=== PATIENT | male | born 1970 | race Two or more races ===

== ENCOUNTER → 2019-03-09 11:33 | Emergency (ER) | payer OTHER ==
[~2019-03-09 11:33] MED LIST: Ketorolac INJ* 30 MG/ML 1 ML VIAL IM ONE
--- NOTE | 2019-03-09 13:15 | ED ---
Throat Pain/Nasal Congestion - HPI Summary HPI Summary: A 49 y/o male presents to [facility] with a chief complaint of throat pain since 07/16. The patient reports that he saw his PCP, tested negative for Strep, and was given Z-pack. Instead of getting better, he reports that his pain is getting worse, with a cough, runny nose, and swelling underneath his neck. At triage he rated his pain as an 8/10 in severity. - History of Current Complaint Chief Complaint: EDThroatPain Time Seen by Provider: 03/09/19 12:53 Hx Obtained From: Patient Onset/Duration: Sudden Onset, Lasting Days, Still Present Severity: Severe Associated Signs And Symptoms: Positive: Nasal Discharge Cough: Other: - Pt reports cough - Allergies/Home Medications Allergies/Adverse Reactions: Allergies Allergy/AdvReac Type Severity Reaction Status Date / Time No Known Allergies Allergy Verified 03/09/19 11:36 PMH/Surg Hx/FS Hx/Imm Hx Cardiovascular History: Reports: Hx Hypertension Denies: Hx Pacemaker/ICD Respiratory History: Denies: Hx Asthma Sensory History: Denies: Hx Hearing Aid Psychiatric History: Denies: Hx Panic Disorder - Immunization History Date of Tetanus Vaccine: utd Date of Influenza Vaccine: utd Infectious Disease History: No Infectious Disease History: Denies: Traveled Outside the [place] in Last 30 Days - Family History Known Family History: Negative: Hypertension - Social History Alcohol Use: None Substance Use Type: Reports: None Hx Tobacco Use: No Smoking Status (MU): Never Smoked Tobacco Review of Systems Negative: Fever Positive: Nasal Discharge, Other - positive: swelling underneath neck Positive: Cough All Other Systems Reviewed And Are Negative: Yes Physical Exam - Summary Physical Exam Summary: Constitutional: Well-developed, Well-nourished, Alert. (-) Distressed Skin: Warm, Dry HENT: Normocephalic; Atraumatic, Left anterior cervical lymphadenopathy Eyes: Conjunctiva normal Neck: Musculoskeletal ROM Left anterior cervical lymphadenopathy. (-) JVD, (-) Stridor, (-) Tracheal deviation Cardio: Rhythm regular, rate normal, Heart sounds normal; Intact distal pulses; The pedal pulses are 2+ and symmetric. Radial pulses are 2+ and symmetric. (-) Murmur Pulmonary/Chest wall: Effort normal. (-) Respiratory distress, (-) Wheezes, (-) Rales Abd: Soft, (-) tenderness, (-) Distension, (-) Guarding, (-) Rebound Musculoskeletal: (-) Edema Lymph: (-) Cervical adenopathy Neuro: Alert, Oriented x3 Psych: Mood and affect Normal Triage Information Reviewed: Yes Vital Signs On Initial Exam: Initial Vitals Temp Pulse Resp BP Pulse Ox 98.1 F 76 15 144/96 97 03/09/19 11:37 03/09/19 11:37 03/09/19 11:37 03/09/19 11:37 03/09/19 11:37 Vital Signs Reviewed: Yes Diagnostics - Vital Signs Vital Signs Temp Pulse Resp BP Pulse Ox 03/09/19 11:37 98.1 F 76 15 144/96 97 - Laboratory Lab Statement: Any lab studies that have been ordered have been reviewed, and results considered in the medical decision making process. Re-Evaluation - Re-Evaluation First Eval Re-Evaluation Time: 13:15 Change: Unchanged Comment: Swelling erythema and exudate over tonsils bilaterally Second Eval Re-Evaluation Time: 15:22 Change: Unchanged Comment: Discussed results and plan for DC and follow up with ENT. EENT Course/Dx - Course Course Of Treatment: A 49 y/o male presents to [facility] with a chief complaint of throat pain since 03/05/19. The patient reports that he saw his PCP, tested negative for Strep, and was given Z-pack. Instead of getting better, he reports that his pain is getting worse, with a cough, runny nose, and swelling underneath his neck. The physical exam revealed left anterior cervical lymphadenopathy. Re-eval showed swelling, erythema and exudate over tonsils bilaterally. The patient tested negative on monoscreen, influenza A, influenza B and group A strep. In the ED course the patient was given Toradol IM. The patient will be discharged and follow up with ENT. The patient is agreeable with this plan. - Diagnoses Provider Diagnoses: Pharyngitis, Viral illness Discharge - Sign-Out/Discharge Documenting (check all that apply): Patient Departure - DC Patient Received Moderate/Deep Sedation with Procedure: No - Discharge Plan Condition: Good Disposition: HOME Patient Education Materials: Pharyngitis (ED), Viral Syndrome (ED) Print Language: GREENLANDIC Referrals: Je Martinez MD [Medical Doctor] - Radha Sierra MD [Primary Care Provider] - - Billing Disposition and Condition Condition: GOOD Disposition: Home - Attestation Statements Document Initiated by Alta: Yes Documenting Scribe: Nicolás Rasmussen Provider For Whom Alta is Documenting (Include Credential): Stacey Pina MD Scribe Attestation: I, Nicolás Rasmussen, scribed for Stacey Roman MD on 03/09/19 at 2239. Scribe Documentation Reviewed: Yes Provider Attestation: The documentation as recorded by the Nicolás christian accurately reflects the service I personally performed and the decisions made by me, Stacey Roman MD Status of Scribe Document: Viewed
[2019-03-09 13:54] LABS: Rapid Strep Molecular Negative (Negative)
[2019-03-09 14:06] LABS: Influenza A Molecular NEGATIVE (Negative); Influenza B Molecular NEGATIVE (Negative)
[2019-03-09 15:26] VITALS: BP 156/98
== END | disposition home or self-care (01) ==
LOC: ED 11:33
DX: J02.9 Acute pharyngitis, unspecified (principal); B34.9 Viral infection, unspecified; I10 Essential (primary) hypertension
CPT/HCPCS: 36415; 86308; 87651; 96372; 99282; J1885